=== PATIENT | female | born 1995 | race Caucasian/White ===

== ENCOUNTER 2017-05-28 21:09 | Emergency (ER) | payer OTHER ==
[~2017-05-28] VITALS: Ht 154.9 cm; Wt 65.8 kg
[~2017-05-28 21:09] MED LIST: CEPH500C24 PO; CIPR-344 PO; ETON68IM SQ; HYDR-4240 PO; NAPR500T75 PO; PHEN200T32 PO; SULF-198 PO
--- NOTE | 2017-05-28 21:22 | ER Report ---
History and Physical Time Seen By MD: 21:22 HPI/ROS CHIEF COMPLAINT: Epigastric pain, diarrhea HISTORY OF PRESENT ILLNESS: 21-year-old female presents ambulatory to the ER complaining of diarrhea for 2 days. The onset of her epigastric pain was approximately 4 days ago. There was very mild at the beginning of the onset. Is become more intense over the last 2 days unbearable tonight which prompted her to come to the ER. She's had nausea but no vomiting. She's had no fever or chills. She does have a history of recurrent urinary tract infections. She denies exposure to ill contacts, recent travel or antibiotic use. Patient's last menstrual was one week ago. REVIEW OF SYSTEMS: Respiratory: No cough, no dyspnea. Cardiovascular: No chest pain, no palpitations. Gastrointestinal: As above Musculoskeletal: No back pain. Allergies: Coded Allergies: Penicillins (Verified Allergy, Mild, 05/28/17) Uncoded Allergies: DAIRY (Allergy, Unknown, 09/11/14) Home Meds Active Scripts Ondansetron Hcl (ZOFRAN) 4 Mg Tablet, 4 MG PO Q6H Y for NAUSEA/VOMITING, #10 Prov:JONY DE LA CRUZ DO 05/28/17 Tramadol Hcl (TRAMADOL HCL) 50 Mg Tablet, 1 TAB PO Q6H Y for PAIN, #15 TAB Prov:JONY DE LA CRUZ DO 05/28/17 Cephalexin 500 Mg Tab (KEFLEX 500 MG TAB) 500 Mg Tablet, 500 MG PO TID for infection, #15 TAB Prov:JONY DE LA CRUZ DO 05/28/17 Phenazopyridine Hcl (PHENAZOPYRIDINE HCL) 200 Mg Tablet, 200 MG PO TID, #9 TAB 0 Refills Prov:LUIS SMITH MD 12/02/16 Sulfamethoxazole/Trimet 800-160 Mg Tab (BACTRIM DS TABLET) 1 Each Tablet, 1 TAB PO Q12H, #5 MG 0 Refills TAKE ONE TABLET BY MOUTH EVERY TWELVE HOURS First dose evening 12/02/16 Prov:LUIS SMITH MD 12/02/16 Cephalexin Monohydrate (CEPHALEXIN) 500 Mg Cap, 500 MG PO TID for infection, # 21 CAP TAKE 1 CAPSULE BY MOUTH EVERY SIX HOURS Prov:JONY DE LA CRUZ DO 11/19/16 Ciprofloxacin Hcl (CIPRO) 500 Mg Tablet, 500 MG PO BID, #14 TAB Prov:CRISTINA VERDUZCO MD 01/24/16 Reported Medications Etonogestrel (NEXPLANON) 68 Mg Implant, 68 MG SQ DIRECTED, IMPLANT 01/24/16 Reviewed Nurses Notes: Yes Old Medical Records Reviewed: Yes Hx Smoking: No Hx Substance Use Disorder: No Hx Alcohol Use: Yes (occasional) Constitutional Vital Sign - Last 24 Hours 05/28/17 05/28/17 05/28/17 05/28/17 21:18 21:21 21:24 21:29 Temp 99.7 Pulse 114 99 103 Resp 16 B/P (MAP) 137/94 137/94 (108) Pulse Ox 98 99 100 O2 Delivery Room Air 05/28/17 05/28/17 05/28/17 05/28/17 21:33 21:34 21:39 21:44 Pulse 88 98 98 B/P (MAP) 113/72 (86) Pulse Ox 99 98 100 05/28/17 05/28/17 05/28/17 05/28/17 21:49 21:54 21:59 22:00 Pulse 92 105 91 B/P (MAP) 108/72 (84) Pulse Ox 97 98 96 05/28/17 05/28/17 05/28/17 05/28/17 22:04 22:09 22:14 22:19 Pulse 102 ??? 96 ??? Pulse Ox 98 98 96 05/28/17 05/28/17 05/28/17 05/28/17 22:24 22:25 22:44 22:45 Pulse ??? 85 Resp 16 B/P (MAP) 115/75 (88) 122/73 (89) 99/77 (84) Pulse Ox 98 05/28/17 05/28/17 05/28/17 22:49 22:54 22:59 Pulse 74 80 79 Pulse Ox 97 95 95 Physical Exam General Appearance: The patient is alert, has no immediate need for airway protection and no current signs of toxicity.. Mild distress HEENT: Pupils equal and round no injection. Oropharynx without redness, mucous. Membranes are moist Respiratory: Chest is non tender, lungs are clear to auscultation. Cardiac: regular rate and rhythm Gastrointestinal: Abdomen is soft, moderate epigastric tenderness, no rebound or guarding, no masses, bowel sounds normal. Musculoskeletal: Neck: Neck is supple and non tender. No lymphadenopathy Extremities have full range of motion and are non tender. Skin: No rashes or lesions. DIFFERENTIAL DIAGNOSIS: After history and physical exam differential diagnosis was considered for abdominal pain including but not limited to appendicitis, cholecystitis, gastritis, diarrhea, infectious diarrhea, food poisoning, gastroenteritis, and urinary tract infection. Medical Decision Making Data Points Result Diagram: 05/28/17212905/28/172129 Laboratory Hematology Test 05/28/17 21:30 Red Blood Count 5.14 M/uL (4.17-5.56) Mean Corpuscular Volume 89.4 fL (80.0-96.0) Mean Corpuscular Hemoglobin 30.9 pg (26.0-33.0) Mean Corpuscular Hemoglobin Concent 34.6 g/dL (32.0-36.0) Red Cell Distribution Width 12.6 % (11.5-14.5) Mean Platelet Volume 7.2 fL (7.2-11.1) Neutrophils (%) (Auto) 57.6 % (39.4-72.5) Lymphocytes (%) (Auto) 31.4 % (17.6-49.6) Monocytes (%) (Auto) 7.1 % (4.1-12.4) Eosinophils (%) (Auto) 3.3 % (0.4-6.7) Basophils (%) (Auto) 0.6 % (0.3-1.4) Nucleated RBC Relative Count (auto) 0.0 /100WBC Neutrophils # (Auto) 5.7 K/uL (2.0-7.4) Lymphocytes # (Auto) 3.1 K/uL (1.3-3.6) Monocytes # (Auto) 0.7 K/uL (0.3-1.0) Eosinophils # (Auto) 0.3 K/uL (0.0-0.5) Basophils # (Auto) 0.1 K/uL (0.0-0.1) Nucleated RBC Absolute Count (auto) 0.00 K/uL Urine Color Yellow Urine Clarity Slightly-cloudy Urine pH 5.0 pH (4.8-9.5) Urine Specific [place] 1.012 Urine Protein 30 mg/dL (NEGATIVE) Urine Glucose (UA) Negative mg/dL (NEGATIVE) Urine Ketones Negative mg/dL (NEGATIVE) Urine Blood Negative (NEGATIVE) Urine Nitrite Negative (NEGATIVE) Urine Bilirubin Negative (NEGATIVE) Urine Urobilinogen Negative mg/dL (0.2-1.9) Urine Leukocyte Esterase Moderate (NEGATIVE) Urine RBC None /HPF (0-2/HPF) Urine WBC 13 /HPF (0-5/HPF) Urine Squamous Epithelial Cells Many /LPF (</=FEW) Urine Bacteria Few /HPF (NONE-FEW) Urine Hyaline Casts Few /LPF (NONE-FEW) Urine Mucus Few /HPF (NONE-FEW) Sodium Level 139 mmol/L (137-145) Potassium Level 3.6 mmol/L (3.5-5.0) Chloride Level 103 mmol/L (98-107) Carbon Dioxide Level 24 mmol/L (22-31) Blood Urea Nitrogen 13 mg/dl (7-18) Creatinine 0.90 mg/dl (0.52-1.04) Glomerular Filtration Rate Calc > 60.0 Random Glucose 94 mg/dl (75-110) Calcium Level 9.6 mg/dl (8.4-10.2) Total Bilirubin 0.4 mg/dl (0.2-1.3) Aspartate Amino Transf (AST/SGOT) 22 U/L (0-35) Alanine Aminotransferase (ALT/SGPT) 34 U/L (0-56) Alkaline Phosphatase 55 U/L (0-126) Total Protein 8.4 gm/dl (6.3-8.2) Albumin 4.6 g/dl (3.5-5.0) Amylase Level 76 U/L (0-110) Lipase 176 U/L (23-300) Human Chorionic Gonadotropin, Qual Negative (NEGATIVE) Chemistry Test 05/28/17 21:30 White Blood Count 9.9 k/uL (4.5-11.0) Red Blood Count 5.14 M/uL (4.17-5.56) Hemoglobin 15.9 g/dL (12.0-16.0) Hematocrit 45.9 % (34.0-47.0) Mean Corpuscular Volume 89.4 fL (80.0-96.0) Mean Corpuscular Hemoglobin 30.9 pg (26.0-33.0) Mean Corpuscular Hemoglobin Concent 34.6 g/dL (32.0-36.0) Red Cell Distribution Width 12.6 % (11.5-14.5) Platelet Count 321 K/uL (150-450) Mean Platelet Volume 7.2 fL (7.2-11.1) Neutrophils (%) (Auto) 57.6 % (39.4-72.5) Lymphocytes (%) (Auto) 31.4 % (17.6-49.6) Monocytes (%) (Auto) 7.1 % (4.1-12.4) Eosinophils (%) (Auto) 3.3 % (0.4-6.7) Basophils (%) (Auto) 0.6 % (0.3-1.4) Nucleated RBC Relative Count (auto) 0.0 /100WBC Neutrophils # (Auto) 5.7 K/uL (2.0-7.4) Lymphocytes # (Auto) 3.1 K/uL (1.3-3.6) Monocytes # (Auto) 0.7 K/uL (0.3-1.0) Eosinophils # (Auto) 0.3 K/uL (0.0-0.5) Basophils # (Auto) 0.1 K/uL (0.0-0.1) Nucleated RBC Absolute Count (auto) 0.00 K/uL Urine Color Yellow Urine Clarity Slightly-cloudy Urine pH 5.0 pH (4.8-9.5) Urine Specific [place] 1.012 Urine Protein 30 mg/dL (NEGATIVE) Urine Glucose (UA) Negative mg/dL (NEGATIVE) Urine Ketones Negative mg/dL (NEGATIVE) Urine Blood Negative (NEGATIVE) Urine Nitrite Negative (NEGATIVE) Urine Bilirubin Negative (NEGATIVE) Urine Urobilinogen Negative mg/dL (0.2-1.9) Urine Leukocyte Esterase Moderate (NEGATIVE) Urine RBC None /HPF (0-2/HPF) Urine WBC 13 /HPF (0-5/HPF) Urine Squamous Epithelial Cells Many /LPF (</=FEW) Urine Bacteria Few /HPF (NONE-FEW) Urine Hyaline Casts Few /LPF (NONE-FEW) Urine Mucus Few /HPF (NONE-FEW) Glomerular Filtration Rate Calc > 60.0 Calcium Level 9.6 mg/dl (8.4-10.2) Total Bilirubin 0.4 mg/dl (0.2-1.3) Aspartate Amino Transf (AST/SGOT) 22 U/L (0-35) Alanine Aminotransferase (ALT/SGPT) 34 U/L (0-56) Alkaline Phosphatase 55 U/L (0-126) Total Protein 8.4 gm/dl (6.3-8.2) Albumin 4.6 g/dl (3.5-5.0) Amylase Level 76 U/L (0-110) Lipase 176 U/L (23-300) Human Chorionic Gonadotropin, Qual Negative (NEGATIVE) Urinalysis Test 05/28/17 21:30 Urine Color Yellow Urine Clarity Slightly-cloudy Urine pH 5.0 pH (4.8-9.5) Urine Specific [place] 1.012 Urine Protein 30 mg/dL (NEGATIVE) Urine Glucose (UA) Negative mg/dL (NEGATIVE) Urine Ketones Negative mg/dL (NEGATIVE) Urine Blood Negative (NEGATIVE) Urine Nitrite Negative (NEGATIVE) Urine Bilirubin Negative (NEGATIVE) Urine Urobilinogen Negative mg/dL (0.2-1.9) Urine Leukocyte Esterase Moderate (NEGATIVE) Urine RBC None /HPF (0-2/HPF) Urine WBC 13 /HPF (0-5/HPF) Urine Squamous Epithelial Cells Many /LPF (</=FEW) Urine Bacteria Few /HPF (NONE-FEW) Urine Hyaline Casts Few /LPF (NONE-FEW) Urine Mucus Few /HPF (NONE-FEW) Microbiology Microbiology Date/Time Source Procedure Growth Status 05/28/17 00:00 Clean Catch Midstream Ur Urine Culture - Preliminary NO GROWTH SO FAR, SET LATE. REINCUBATED Resulted ED Course/Re-evaluation Clinical Indication for ER IV: Hydration, IV Access ED Course Patient was admitted to an examination room. H&P was done. The differential diagnosis was considered. On clinical examination. Patient has a benign nonsurgical abdominal examination. She has moderate epigastric tenderness. Patient's treated with IV fluids, Zofran, Toradol, fentanyl. Diagnostic evaluation shows a normal white blood cell count. Remainder of her laboratories are unremarkable. Patient's urinalysis suggests some mild urinary tract infection. Patient has history of urinary tract infections. Urinary cultures ordered. Patient will be treated with Keflex 500 mg 3 times a day. She lists a penicillin allergy but has never actually taken penicillin or amoxicillin. Her family thinks that everybody in her family is allergic to amoxicillin. Patient was given a prescription for Zofran and tramadol for symptomatically management. She is advised a clear liquid diet. She is advised to take Prilosec 20 mg per day. Patient advised clear liquid diet for 24-48 hours. Decision to Disposition Date: May 28, 2017 Decision to Disposition Time: 21:59 Depart Departure Latest Vital Signs Vital Signs Date Time Temp Pulse Resp B/P (MAP) Pulse Ox O2 Delivery O2 Flow Rate FiO2 05/28/17 22:59 79 95 05/28/17 22:45 99/77 (84) 05/28/17 22:25 16 05/28/17 21:18 99.7 Room Air Impression: Primary Impression: Epigastric pain Additional Impressions: Dyspepsia Urinary tract infection with pyuria Condition: Improved Disposition: HOME OR SELF-CARE Referrals: SEAMUS LAYNE (PCP) [place] Ondansetron Hcl (ZOFRAN) 4 Mg Tablet 4 MG PO Q6H Y for NAUSEA/VOMITING, #10 Prov: JONY DE LA CRUZ DO 05/28/17 Tramadol Hcl (TRAMADOL HCL) 50 Mg Tablet 1 TAB PO Q6H Y for PAIN, #15 TAB Prov: JONY DE LA CRUZ DO 05/28/17 Cephalexin 500 Mg Tab (KEFLEX 500 MG TAB) 500 Mg Tablet 500 MG PO TID for infection, #15 TAB Prov: JONY DE LA CRUZ DO 05/28/17 Patient Instructions: Abdominal Pain (ED), Clear Liquid Diet (ED), Urinary Tract Infection in Women (ED) Additional Instructions: Follow clear liquid diet for 24-48 hours, then advance to [place] diet, bananas, rice, applesauce, toast Take antibiotic Keflex 500 mg 3 times daily for UTI Use Zofran for nausea control Use tramadol for pain relief one tablet every 6 hours as needed You may also take Tylenol for pain Avoid ibuprofen and Aleve Take Pepcid 20 mg OTC per day for one week Follow-up with your primary care if unimproved in 3-5 days Problem Qualifiers JONY DE LA CRUZ DO May 28, 2017 21:22
[2017-05-28] MEDS ORDERED: NS(*) 0.9% 1000 ML BAG 1,000 ML IV ONE (21:27)
[2017-05-28] MEDS ORDERED: fentaNYL CITR 100 MCG/2 ML AMP IVP ONE (21:30)
[2017-05-28] MEDS ORDERED: ONDANSETRON 4 MG/2 ML VIAL IVP ONE (21:30)
[2017-05-28] MEDS ORDERED: KETOROLAC 30 MG/ML VIAL IVP ONE (21:30)
[2017-05-28 21:40] LABS: PLATELET COUNT, AUTOMATED 321 K/uL (150-450)
[2017-05-28] MEDS ORDERED: CEPH500T7 PO (22:06)
[2017-05-28] MEDS ORDERED: TRAM-420 PO (22:06)
[2017-05-28] MEDS ORDERED: ONDA4TAB97 PO (22:06)
[2017-05-28] MEDS ORDERED: ONDANSETRON 4 MG ODT TH SL ONE (22:10)
[2017-05-28] MEDS ORDERED: traMADol 50 MG TAB TH 2 TAB/BOTTLE PO ONE (22:10)
[2017-05-28] MEDS ORDERED: PANTOPRAZOLE SOD 20 MG TABEC PO SCH (22:10)
[2017-05-28] MEDS ORDERED: CEPHALEXIN MONO 500 MG CAP PO ONE (22:10)
[2017-05-28 22:45] VITALS: BP 99/77
== END 2017-05-28 23:00 | disposition home or self-care (01) ==
LOC: ER 21:23
DX: N39.0 Urinary tract infection, site not specified (principal); R10.13 Epigastric pain
CPT/HCPCS: 81001; 82150; 83690; 84703; 85025; 87088; 99284; C9399; J1885; J2405; J3010; J7030; S0119; 82040; 82247; 82310; 82374; 82435; 82565; 82947; 84075; 84132; 84155; 84295; 84450; 84460; 84520